=== PATIENT | male | born 1940 | race Native Hawaiian/Other Pacific Islander ===

== ENCOUNTER 2016-07-06 14:07 | Observation (INO) | payer OTHER ==
[~2016-07-06] VITALS: Ht 190.5 cm; Wt 86.3 kg
[2016-07-06 14:00] VITALS: BP 133/82; TEMP 98.4
[2016-07-06 14:59] LABS: POTASSIUM 3.9 mmol/L (3.6-5.2); SODIUM 135 mmol/L (136-145)
[2016-07-06 15:23] LABS: PARTIAL THROMBOPLASTIN TIME 25.9 SECONDS (24.5-33.6)
[2016-07-06] MEDS ORDERED: LOSA50TA PO (16:54)
[2016-07-06] MEDS ORDERED: LIPITOR80 MG PO (16:55)
[2016-07-06] MEDS ORDERED: CARV12.5 PO (16:56)
[2016-07-06] MEDS ORDERED: ISOS30TA17 PO (16:56)
[2016-07-06] MEDS ORDERED: CLOP75TA2 PO (16:57)
[2016-07-06] MEDS ORDERED: ENTERIC COATED325 MG PO (16:57)
[2016-07-06] MEDS ORDERED: [UNRECOGNIZED DRUG - OTHER] OR (16:58)
[2016-07-06] MEDS ORDERED: STOOL SOFTNR100 MG OR (16:58)
[2016-07-06] MEDS ORDERED: SUPER B COM1 OR (16:59)
[2016-07-06] MEDS ORDERED: FERROUS SULF325 MG PO (16:59)
[2016-07-06] MEDS ORDERED: VITAMIN B-121000 MCG PO (16:59)
[2016-07-06] MEDS ORDERED: VITAMIN B6200 MG PO (17:00)
[2016-07-06 19:19] VITALS: BP 116/78; TEMP 98.6; Ht 190.5 cm; Wt 86.3 kg
[2016-07-06 20:00] VITALS: BP 109/64; TEMP 97.9
[2016-07-07 00:16] VITALS: BP 98/55; TEMP 98.2
[2016-07-07 05:48] VITALS: BP 125/74; TEMP 98
[2016-07-07 07:39] LABS: PLATELET COUNT 132 K/uL (142-355)
[2016-07-07 08:00] VITALS: BP 132/84; TEMP 97.8
[2016-07-07 08:09] LABS: POTASSIUM 3.9 mmol/L (3.6-5.2); SODIUM 135 mmol/L (136-145)
[2016-07-07 12:00] VITALS: BP 137/74; TEMP 98.5
== END 2016-07-07 13:04 | disposition home or self-care (01) ==
LOC: ED 14:07 → MED/SURG 17:27
PROVIDERS: Emergency Medicine; ADMIT Specialist
DX: R07.89 Other chest pain (principal); R06.02 Shortness of breath; I25.2 Old myocardial infarction; Z86.73 Personal history of transient ischemic attack (TIA), and cerebral infarction without residual deficits
CPT/HCPCS: 80053; 82550; 82553; 83735; 84100; 84484; 85027; 85379; 85610; 85730; 93005; 96360; 96361; 96372; 99220; 99284; G0378; J1650; J2270

== ENCOUNTER 2016-08-13 10:14 | Observation (INO) | payer OTHER ==
[~2016-08-13] VITALS: Ht 190.5 cm; Wt 89.1 kg
[2016-08-13] VITALS (7 sets, daily range): BP systolic 138–146; BP diastolic 88–103; TEMP 98–98.7; Ht 190.5 cm; Wt 89.1 kg
[~2016-08-13 10:14] MED LIST: CARV12.5 PO; CLOP75TA2 PO; ENTERIC COATED325 MG PO; FERROUS SULF325 MG PO; ISOS30TA17 PO; LIPITOR80 MG PO; LOSA50TA PO; STOOL SOFTNR100 MG OR; SUPER B COM1 OR; VITAMIN B-121000 MCG PO; VITAMIN B6200 MG PO; [UNRECOGNIZED DRUG - OTHER] OR
[2016-08-13 11:39] LABS: PLATELET COUNT 146 K/uL (142-355)
[2016-08-13 12:15] LABS: POTASSIUM 4.2 mmol/L (3.6-5.2); SODIUM 137 mmol/L (136-145)
[2016-08-13 12:17] LABS: PARTIAL THROMBOPLASTIN TIME 25.2 SECONDS (24.5-33.6)
[2016-08-14 04:00] VITALS: BP 139/98; TEMP 97.7
[2016-08-14 04:20] LABS: PLATELET COUNT 151 K/uL (142-355)
[2016-08-14 04:44] LABS: POTASSIUM 4.6 mmol/L (3.6-5.2); SODIUM 136 mmol/L (136-145)
[2016-08-14 08:00] VITALS: BP 142/96; TEMP 98
== END 2016-08-14 13:00 | disposition home or self-care (01) ==
LOC: ED 10:14 → MED/SURG 14:05
PROVIDERS: Specialist; ADMIT Internal Medicine
DX: R07.89 Other chest pain (principal); R06.02 Shortness of breath; I25.2 Old myocardial infarction; I10 Essential (primary) hypertension
CPT/HCPCS: 36415; 80048; 80053; 82550; 84484; 85027; 85610; 85730; 93005; 99220; 99284; G0378

== ENCOUNTER 2018-09-12 13:39 | Emergency (ER) | payer OTHER ==
[~2018-09-12] VITALS: Ht 185.4 cm; Wt 74.8 kg
[2018-09-12 14:04] LABS: PLATELET COUNT 148 K/uL (142-355)
[2018-09-12 14:11] LABS: POTASSIUM 4.1 mmol/L (3.6-5.2); SODIUM 134 mmol/L (136-145)
[2018-09-12] MEDS ORDERED: LIPITOR40 MG PO (14:36)
[2018-09-12] MEDS ORDERED: NITR0.4S2 SL (14:40)
[2018-09-12] MEDS ORDERED: PROAIR HFA INH (14:44)
[2018-09-12] MEDS ORDERED: NEURONTIN 100M100 MG PO (14:46)
[2018-09-12] MEDS ORDERED: TOPIRAMATE50 MG PO (14:48)
[2018-09-12] MEDS ORDERED: TOPIRAMATE25 MG PO (14:50)
[2018-09-12] MEDS ORDERED: ISOS60TA6 PO (14:53)
[2018-09-12] MEDS ORDERED: CARV25TA PO (14:56)
[2018-09-12 17:55] VITALS: BP 145/92; TEMP 98.1
== END 2018-09-12 17:55 | disposition home or self-care (01) ==
LOC: ED 13:39
PROVIDERS: Emergency Medicine
DX: R07.89 Other chest pain (principal)
CPT/HCPCS: 36415; 80053; 82550; 82553; 84484; 85027; 93005; 99284; J2270

== ENCOUNTER 2018-11-06 08:06 | Observation (INO) | payer OTHER ==
[~2018-11-06] VITALS: Ht 188 cm; Wt 84.8 kg
[2018-11-06] VITALS (8 sets, daily range): BP systolic 94–149; BP diastolic 67–94; TEMP 97.4–97.5; Ht 188 cm; Wt 84.8 kg
[~2018-11-06 08:06] MED LIST changes: +CARV25TA PO; +ISOS60TA6 PO; +LIPITOR40 MG PO; +NEURONTIN 100M100 MG PO; +NITR0.4S2 SL; +PROAIR HFA INH; +TOPIRAMATE25 MG PO; +TOPIRAMATE50 MG PO
[2018-11-06 08:36] LABS: PLATELET COUNT 125 K/uL (142-355)
[2018-11-06 08:48] LABS: SODIUM 130 mmol/L (136-145)
[2018-11-06 09:03] LABS: PARTIAL THROMBOPLASTIN TIME 27.6 SECONDS (24.5-33.6)
[2018-11-07 00:03] VITALS: BP 103/71; TEMP 97.5
[2018-11-07 04:00] VITALS: BP 103/70; TEMP 97.4
[2018-11-07 04:49] LABS: PLATELET COUNT 112 K/uL (142-355)
[2018-11-07 06:03] LABS: POTASSIUM 4.3 mmol/L (3.6-5.2)
[2018-11-07 08:14] VITALS: BP 138/86; TEMP 97.6
== END 2018-11-07 11:43 | disposition home or self-care (01) ==
LOC: ED 08:06 → MED/SURG 10:15
PROVIDERS: Family Medicine; ADMIT Student in an Organized Health Care Education/Training Program
DX: R07.89 Other chest pain (principal); E87.1 Hypo-osmolality and hyponatremia; I73.89 Other specified peripheral vascular diseases; R53.1 Weakness; Z86.73 Personal history of transient ischemic attack (TIA), and cerebral infarction without residual deficits; G40.802 Other epilepsy, not intractable, without status epilepticus; I25.2 Old myocardial infarction; E78.00 Pure hypercholesterolemia, unspecified; I25.10 Atherosclerotic heart disease of native coronary artery without angina pectoris; Z95.0 Presence of cardiac pacemaker; D64.89 Other specified anemias; J44.9 Chronic obstructive pulmonary disease, unspecified; R13.0 Aphagia; Z91.14 Patient's other noncompliance with medication regimen
CPT/HCPCS: 36415; 80053; 80061; 80307; 80320; 82140; 82550; 83880; 84443; 84484; 85027; 85610; 85730; 93005; 96365; 96366; 99220; 99284; G0378

== ENCOUNTER 2019-01-09 12:08 | Emergency (ER) | payer OTHER ==
[~2019-01-09] VITALS: Ht 188 cm; Wt 70.3 kg
[2019-01-09 12:20] VITALS: TEMP 98
[2019-01-09 12:43] LABS: PLATELET COUNT 150 K/uL (142-355)
[2019-01-09 12:58] LABS: PARTIAL THROMBOPLASTIN TIME 27.4 SECONDS (24.5-33.6)
[2019-01-09 16:42] VITALS: BP 132/89
== END 2019-01-09 16:42 | disposition short-term general hospital (02) ==
LOC: ED 12:08
PROVIDERS: Emergency Medicine
DX: G45.9 Transient cerebral ischemic attack, unspecified (principal); I63.9 Cerebral infarction, unspecified; R47.81 Slurred speech; Z86.73 Personal history of transient ischemic attack (TIA), and cerebral infarction without residual deficits; Z79.899 Other long term (current) drug therapy
CPT/HCPCS: 36415; 80053; 80307; 81000; 82550; 84484; 85027; 85610; 85730; 93005; 99284

== ENCOUNTER 2019-05-15 12:41 | Emergency (ER) | payer OTHER ==
[~2019-05-15] VITALS: Ht 188 cm; Wt 70.3 kg
[2019-05-15 12:50] VITALS: TEMP 98.1
[2019-05-15 13:51] LABS: PLATELET COUNT 160 K/uL (142-355)
[2019-05-15 14:07] LABS: PARTIAL THROMBOPLASTIN TIME 21.3 SECONDS (24.5-33.6)
[2019-05-15 17:30] VITALS: BP 141/94
== END 2019-05-15 17:35 | disposition home or self-care (01) ==
LOC: ED 12:41
PROVIDERS: Emergency Medicine
DX: I95.89 Other hypotension (principal); E86.0 Dehydration; I69.328 Other speech and language deficits following cerebral infarction; I69.359 Hemiplegia and hemiparesis following cerebral infarction affecting unspecified side; H53.143 Visual discomfort, bilateral; Z79.82 Long term (current) use of aspirin; Z79.02 Long term (current) use of antithrombotics/antiplatelets; Z51.81 Encounter for therapeutic drug level monitoring; R53.1 Weakness; F17.210 Nicotine dependence, cigarettes, uncomplicated
CPT/HCPCS: 80053; 80307; 81000; 83036; 84484; 85027; 85610; 85730; 93005; 96360; 96365; 99284

== ENCOUNTER 2019-06-14 14:19 | Emergency (ER) | payer OTHER ==
[~2019-06-14] VITALS: Ht 182.9 cm; Wt 83.5 kg
[2019-06-14 16:41] LABS: PLATELET COUNT 135 K/uL (142-355)
[2019-06-14 16:46] LABS: SODIUM 136 mmol/L (136-145)
[2019-06-14 18:54] VITALS: BP 136/98; TEMP 98.2
== END 2019-06-14 18:54 | disposition home or self-care (01) ==
LOC: ED 14:19
PROVIDERS: Emergency Medicine
DX: D64.89 Other specified anemias (principal); Z95.0 Presence of cardiac pacemaker; F17.210 Nicotine dependence, cigarettes, uncomplicated
CPT/HCPCS: 80053; 81000; 82550; 83735; 84484; 85027; 87502; 93005; 99283

== ENCOUNTER 2019-06-28 19:28 | Emergency (ER) | payer OTHER ==
[~2019-06-28] VITALS: Ht 182.9 cm; Wt 83.5 kg
[2019-06-28 20:13] LABS: PLATELET COUNT 143 K/uL (142-355)
[2019-06-28 20:20] LABS: POTASSIUM 4.2 mmol/L (3.6-5.2); SODIUM 134 mmol/L (136-145)
[2019-06-28 22:20] VITALS: BP 161/95; TEMP 97.9
== END 2019-06-28 22:20 | disposition home or self-care (01) ==
LOC: ED 19:28
PROVIDERS: Emergency Medicine
DX: R07.89 Other chest pain (principal); W18.39XA Other fall on same level, initial encounter; Y92.89 Other specified places as the place of occurrence of the external cause
CPT/HCPCS: 80053; 81000; 82150; 82550; 83690; 83735; 83880; 84484; 85027; 93005; 96360; 99284

== ENCOUNTER 2019-08-15 17:35 | Observation (INO) | payer OTHER ==
[~2019-08-15] VITALS: Ht 190.5 cm; Wt 79.0 kg
[2019-08-15 11:07] VITALS: BP 157/96; TEMP 98.4
[2019-08-15 17:52] VITALS: BP 169/92; TEMP 98.4
[2019-08-15 18:32] LABS: PLATELET COUNT 139 K/uL (142-355)
[2019-08-15 18:38] LABS: POTASSIUM 3.9 mmol/L (3.6-5.2)
[2019-08-15 19:11] LABS: PARTIAL THROMBOPLASTIN TIME 25.7 SECONDS (24.5-33.6)
[2019-08-15 21:00] VITALS: BP 135/92; TEMP 97.6
[2019-08-16] VITALS: BP 112/76; TEMP 98.6
[2019-08-16 04:00] VITALS: BP 125/74; TEMP 98.1
[2019-08-16 08:19] VITALS: BP 128/89; TEMP 98.2
[2019-08-16 12:06] VITALS: BP 137/86; TEMP 98.3
[2019-08-16 16:04] VITALS: BP 154/103; TEMP 98.1
[2019-08-16 20:00] VITALS: BP 157/96; TEMP 98.4
[2019-08-17] VITALS: BP 154/92; TEMP 97.8
[2019-08-17 04:00] VITALS: BP 137/95; TEMP 98.4
[2019-08-17 06:08] LABS: PLATELET COUNT 120 K/uL (142-355)
[2019-08-17 06:24] LABS: POTASSIUM 4.5 mmol/L (3.6-5.2)
[2019-08-17 08:00] VITALS: BP 146/96; TEMP 98.2
[2019-08-17 12:01] VITALS: BP 108/67; TEMP 98
[2019-08-17 16:00] VITALS: BP 113/80; TEMP 97.9
[2019-08-17 20:00] VITALS: BP 125/89; TEMP 97.9
== END 2019-08-18 00:06 | disposition short-term general hospital (02) ==
LOC: ED 17:35 → MED/SURG 19:39 → UNDODEPER 08-16 20:09 → MED/SURG 08-18 00:06
PROVIDERS: Internal Medicine; ADMIT Hospitalist
DX: I70.92 Chronic total occlusion of artery of the extremities (principal); Z86.73 Personal history of transient ischemic attack (TIA), and cerebral infarction without residual deficits; I25.10 Atherosclerotic heart disease of native coronary artery without angina pectoris; J44.9 Chronic obstructive pulmonary disease, unspecified; I10 Essential (primary) hypertension; Z72.0 Tobacco use; I25.2 Old myocardial infarction; G40.802 Other epilepsy, not intractable, without status epilepticus; N40.0 Benign prostatic hyperplasia without lower urinary tract symptoms; Z79.899 Other long term (current) drug therapy; Z51.81 Encounter for therapeutic drug level monitoring
CPT/HCPCS: 36415; 80048; 80053; 85027; 85379; 85610; 85730; 87040; 93005; 96365; 96372; 96375; 99220; 99284; G0378; J1650; J1885; J2270; J3370; Q9963

== ENCOUNTER 2019-10-05 11:02 | Emergency (ER) | payer OTHER ==
[~2019-10-05] VITALS: Ht 190.5 cm; Wt 78.9 kg
[2019-10-05 11:14] VITALS: TEMP 99.1
[2019-10-05 12:18] LABS: PLATELET COUNT 192 K/uL (142-355)
[2019-10-05 12:31] LABS: PARTIAL THROMBOPLASTIN TIME 27.2 SECONDS (24.5-33.6)
[2019-10-05 14:30] VITALS: BP 142/84
== END 2019-10-05 15:52 | disposition short-term general hospital (02) ==
LOC: ED 11:02
PROVIDERS: Family Medicine
DX: R60.0 Localized edema (principal); R79.89 Other specified abnormal findings of blood chemistry; Z98.890 Other specified postprocedural states; M79.605 Pain in left leg
CPT/HCPCS: 80053; 85027; 85379; 85610; 85730; 99283

== ENCOUNTER 2019-11-22 20:25 | Emergency (ER) | payer OTHER ==
[~2019-11-22] VITALS: Ht 188 cm; Wt 72.6 kg
[2019-11-22 20:25] VITALS: TEMP 98.6
[2019-11-22 21:17] LABS: PLATELET COUNT 139 K/uL (142-355)
[2019-11-22 21:22] LABS: SODIUM 137 mmol/L (136-145)
[2019-11-22 23:24] VITALS: BP 149/101
== END 2019-11-22 23:24 | disposition home or self-care (01) ==
LOC: ED 20:25
PROVIDERS: Emergency Medicine Emergency Medical Services
DX: R07.89 Other chest pain (principal); I25.2 Old myocardial infarction; Z95.0 Presence of cardiac pacemaker; F17.210 Nicotine dependence, cigarettes, uncomplicated
CPT/HCPCS: 36415; 80053; 84484; 85027; 93005; 99284

== ENCOUNTER 2020-03-27 15:51 | Emergency (ER) | payer OTHER ==
[~2020-03-27] VITALS: Ht 190.5 cm; Wt 82.6 kg
[2020-03-27 16:02] VITALS: TEMP 97.6
[2020-03-27 17:03] LABS: PLATELET COUNT 132 K/uL (142-355)
[2020-03-27 17:20] LABS: POTASSIUM 5.2 mmol/L (3.6-5.2)
[2020-03-27 17:22] LABS: PARTIAL THROMBOPLASTIN TIME 26.5 SECONDS (24.5-33.6)
[2020-03-27 18:00] VITALS: BP 161/110
== END 2020-03-27 18:25 | disposition home or self-care (01) ==
LOC: ED 15:51
PROVIDERS: Emergency Medicine Emergency Medical Services
DX: R07.89 Other chest pain (principal); Z20.828 Contact with and (suspected) exposure to other viral communicable diseases
CPT/HCPCS: 36415; 80053; 82550; 84484; 85027; 85610; 85730; 86140; 87502; 87635; 93005; 99284; U0003

== ENCOUNTER 2020-04-03 09:01 | Emergency (ER) | payer OTHER ==
[~2020-04-03] VITALS: Ht 189.2 cm; Wt 85.3 kg
[2020-04-03 09:18] VITALS: TEMP 98.2
[2020-04-03 10:09] LABS: PLATELET COUNT 112 K/uL (142-355)
[2020-04-03 10:17] LABS: POTASSIUM 4.5 mmol/L (3.6-5.2); SODIUM 137 mmol/L (136-145)
[2020-04-03 13:39] VITALS: BP 128/90
== END 2020-04-03 13:47 | disposition home or self-care (01) ==
LOC: ED 09:01
PROVIDERS: Emergency Medicine Emergency Medical Services
DX: R55 Syncope and collapse (principal); I10 Essential (primary) hypertension; R06.02 Shortness of breath; Z20.828 Contact with and (suspected) exposure to other viral communicable diseases
CPT/HCPCS: 80053; 81000; 83880; 84484; 85027; 85610; 87502; 87635; 93005; 96374; 99284; J3490; U0003

== ENCOUNTER 2020-04-13 07:01 | Emergency (ER) | payer OTHER ==
[~2020-04-13] VITALS: Ht 188 cm; Wt 94.3 kg
[2020-04-13 07:04] VITALS: TEMP 98.3
[2020-04-13 07:48] LABS: PLATELET COUNT 110 K/uL (142-355)
[2020-04-13 13:00] VITALS: BP 141/94
== END 2020-04-13 13:06 | disposition home or self-care (01) ==
LOC: ED 07:01
PROVIDERS: Emergency Medicine Emergency Medical Services
DX: R06.09 Other forms of dyspnea (principal); I50.9 Heart failure, unspecified; Z20.828 Contact with and (suspected) exposure to other viral communicable diseases
CPT/HCPCS: 36600; 80053; 82805; 83880; 84484; 85027; 87502; 87635; 93005; 99283; U0003

== ENCOUNTER 2020-06-12 20:51 | Emergency (ER) | payer OTHER ==
[~2020-06-12] VITALS: Ht 188 cm; Wt 99.8 kg
[2020-06-12 22:19] VITALS: BP 130/84; TEMP 98.2
== END 2020-06-12 22:20 | disposition home or self-care (01) ==
LOC: ED 20:51
DX: S00.83XA Contusion of other part of head, initial encounter (principal); W01.198A Fall on same level from slipping, tripping and stumbling with subsequent striking against other object, initial encounter; Y92.098 Other place in other non-institutional residence as the place of occurrence of the external cause
CPT/HCPCS: 99283

== ENCOUNTER 2020-07-06 18:50 | Emergency (ER) | payer OTHER ==
[~2020-07-06] VITALS: Ht 188 cm; Wt 99.8 kg
[2020-07-06 19:19] LABS: PLATELET COUNT 103 K/uL (142-355)
[2020-07-06 19:27] LABS: POTASSIUM 3.8 mmol/L (3.6-5.2)
[2020-07-06 19:37] LABS: PARTIAL THROMBOPLASTIN TIME 25.3 SECONDS (24.5-33.6)
[2020-07-06 22:15] VITALS: BP 152/103; TEMP 98.9
== END 2020-07-06 22:15 | disposition short-term general hospital (02) ==
LOC: ED 18:50
PROVIDERS: Hospitalist
DX: I21.4 Non-ST elevation (NSTEMI) myocardial infarction (principal); I25.10 Atherosclerotic heart disease of native coronary artery without angina pectoris; S76.012A Strain of muscle, fascia and tendon of left hip, initial encounter; Z03.818 Encounter for observation for suspected exposure to other biological agents ruled out; F17.210 Nicotine dependence, cigarettes, uncomplicated; W18.39XA Other fall on same level, initial encounter; Y92.098 Other place in other non-institutional residence as the place of occurrence of the external cause
CPT/HCPCS: 36415; 80053; 80320; 81000; 84484; 85027; 85610; 85730; 87635; 93005; 96360; 96361; 96375; 99284; J0282; J0360; J1170; J2405; U0003

== ENCOUNTER 2020-09-06 15:26 | Emergency (ER) | payer OTHER ==
[~2020-09-06] VITALS: Ht 188 cm; Wt 91.6 kg
[2020-09-06 15:33] VITALS: TEMP 97.3
[2020-09-06 16:03] LABS: PLATELET COUNT 121 K/uL (142-355)
[2020-09-06 16:08] LABS: POTASSIUM 4.3 mmol/L (3.6-5.2); SODIUM 134 mmol/L (136-145)
[2020-09-06 17:30] VITALS: BP 148/99
== END 2020-09-06 17:50 | disposition home or self-care (01) ==
LOC: ED 15:26
PROVIDERS: Family Medicine
DX: K21.9 Gastro-esophageal reflux disease without esophagitis (principal); M79.2 Neuralgia and neuritis, unspecified; M79.672 Pain in left foot
CPT/HCPCS: 80053; 82550; 84484; 85027; 93005; 99284

== ENCOUNTER 2020-09-25 14:18 | Emergency (ER) | payer OTHER ==
[~2020-09-25] VITALS: Ht 188 cm; Wt 81.6 kg
[2020-09-25 14:25] VITALS: TEMP 97.4
[2020-09-25 15:36] LABS: PLATELET COUNT 102 K/uL (142-355)
[2020-09-25 15:45] LABS: POTASSIUM 3.8 mmol/L (3.6-5.2)
[2020-09-25 17:30] VITALS: BP 133/68
[2020-09-25] MEDS ORDERED: FURO20TA67 PO (17:44)
== END 2020-09-25 17:57 | disposition home or self-care (01) ==
LOC: ED 14:18
PROVIDERS: Emergency Medicine
DX: R60.0 Localized edema (principal); R79.89 Other specified abnormal findings of blood chemistry
CPT/HCPCS: 80053; 83735; 83880; 84484; 85027; 93005; 96374; 99284; J1940

== ENCOUNTER 2020-10-16 04:33 | Emergency (ER) | payer OTHER ==
[~2020-10-16 04:33] MED LIST changes: +FURO20TA67 PO
[2020-10-24 11:15] LABS: POTASSIUM 3.7 mmol/L (3.6-5.2)
[2020-10-24 11:22] LABS: PLATELET COUNT 88 K/uL (142-355)
== END 2020-10-16 06:30 | disposition short-term general hospital (02) ==
LOC: ED 04:33
PROVIDERS: Hospitalist
DX: I50.9 Heart failure, unspecified (principal); T82.897A Other specified complication of cardiac prosthetic devices, implants and grafts, initial encounter; Z95.810 Presence of automatic (implantable) cardiac defibrillator; Z11.52 Encounter for screening for COVID-19; X58.XXXA Exposure to other specified factors, initial encounter; Y92.89 Other specified places as the place of occurrence of the external cause
CPT/HCPCS: 36415; 80053; 82550; 82553; 83880; 84484; 85027; 85610; 85730; 87635; 93005; 96374; 96375; 99284; U0003

== ENCOUNTER → 2020-10-18 | Emergency (ER) | payer OTHER | LOC: ED 12:27 | DX: R10.9 Unspecified abdominal pain (principal) | CPT/HCPCS: 99281 ==

== ENCOUNTER 2020-10-23 16:53 | Emergency (ER) | payer OTHER ==
[~2020-10-23] VITALS: Ht 188 cm; Wt 81.6 kg
[2020-10-23 17:56] LABS: PLATELET COUNT 171 K/uL (142-355)
[2020-10-23 18:03] LABS: POTASSIUM 3.7 mmol/L (3.6-5.2)
[2020-10-23 19:40] VITALS: BP 156/94; TEMP 97.8
== END 2020-10-23 19:40 | disposition home or self-care (01) ==
LOC: ED 16:53
PROVIDERS: Emergency Medicine
DX: R53.81 Other malaise (principal); R53.1 Weakness; R79.89 Other specified abnormal findings of blood chemistry
CPT/HCPCS: 36415; 80053; 82550; 83880; 84484; 85027; 93005; 96374; 99284; J1940

== ENCOUNTER 2020-10-24 13:49 | Emergency (ER) | payer OTHER ==
[~2020-10-24] VITALS: Ht 188 cm; Wt 81.6 kg
[2020-10-24 13:50] VITALS: BP 116/89; TEMP 97.3
== END 2020-10-24 17:39 | disposition home or self-care (01) ==
LOC: ED 13:49
DX: R53.83 Other fatigue (principal)
CPT/HCPCS: 99282

== ENCOUNTER 2020-10-28 23:43 | Inpatient (IN) | payer OTHER ==
[~2020-10-28] VITALS: Ht 190.5 cm; Wt 77.3 kg
[2020-10-28 23:46] VITALS: BP 151/102; TEMP 97.9
[2020-10-29] VITALS (12 sets, daily range): BP systolic 124–161; BP diastolic 86–113; TEMP 97.6–97.9; Ht 190.5 cm; Wt 77.3 kg
[2020-10-29 01:04] LABS: PLATELET COUNT 146 K/uL (142-355)
[2020-10-29 01:12] LABS: POTASSIUM 3.7 mmol/L (3.6-5.2)
[2020-10-29 01:23] LABS: PARTIAL THROMBOPLASTIN TIME 25.8 SECONDS (24.5-33.6)
[2020-10-29] MEDS ORDERED: LISI5TAB10 PO (11:22)
[2020-10-29] MEDS ORDERED: CARV6.25 PO (11:22)
[2020-10-29] MEDS ORDERED: ASPIRIN LOW81 MG PO (11:23)
[2020-10-30] VITALS: BP 135/91; TEMP 98.2
[2020-10-30 04:00] VITALS: BP 121/89; TEMP 97.5
[2020-10-30 05:40] LABS: PLATELET COUNT 134 K/uL (142-355)
[2020-10-30 05:53] LABS: POTASSIUM 3.4 mmol/L (3.6-5.2)
[2020-10-30 08:00] VITALS: BP 129/100; TEMP 98.1
[2020-10-30 12:00] VITALS: BP 115/80; TEMP 97.9
[2020-10-30 16:00] VITALS: BP 119/84; TEMP 98
[2020-10-30 20:00] VITALS: BP 91/64; TEMP 98.1
[2020-10-31] VITALS: BP 102/77; TEMP 97.5
[2020-10-31 04:00] VITALS: BP 120/79; BP 129/66; TEMP 97.7
[2020-10-31 08:00] VITALS: BP 128/91; TEMP 97.5
[2020-10-31 12:00] VITALS: BP 111/78; TEMP 98.1
[2020-10-31 16:00] VITALS: BP 120/84; TEMP 98.1
[2020-10-31 20:00] VITALS: BP 122/96; TEMP 97.7
[2020-11-01] VITALS: BP 127/83; TEMP 97.6
[2020-11-01 04:00] VITALS: BP 120/93; TEMP 98
[2020-11-01 08:00] VITALS: BP 141/93; TEMP 98.1
[2020-11-01 08:21] LABS: PLATELET COUNT 112 K/uL (142-355)
[2020-11-01 08:22] LABS: POTASSIUM 3.9 mmol/L (3.6-5.2)
[2020-11-01 12:00] VITALS: BP 111/80; TEMP 98
[2020-11-01 16:00] VITALS: BP 127/95; TEMP 98.1
[2020-11-01 20:00] VITALS: BP 133/91; TEMP 98
[2020-11-02] VITALS: BP 153/98; TEMP 97.7
[2020-11-02 04:00] VITALS: BP 109/92; TEMP 97.4
[2020-11-02 08:00] VITALS: BP 126/95; TEMP 97.5
[2020-11-02 12:00] VITALS: BP 111/90; TEMP 97.5
[2020-11-02 16:00] VITALS: BP 128/88; TEMP 97.3
[2020-11-02 20:09] VITALS: BP 109/81; TEMP 97.7
[2020-11-03 00:12] VITALS: BP 129/92; TEMP 98.1
[2020-11-03 04:00] VITALS: BP 126/88; TEMP 98
[2020-11-03 08:00] VITALS: BP 115/79; TEMP 97.7
[2020-11-03] MEDS ORDERED: KLOR-CON SPRIN10 MEQ PO (10:19)
[2020-11-03] MEDS ORDERED: FURO20TA67 PO (10:19)
== END 2020-11-03 11:05 | disposition home health service (06) | DRG 190 ==
LOC: ED 23:43 → MED/SURG 10-29 03:13
PROVIDERS: Internal Medicine Endocrinology, Diabetes & Metabolism; ADMIT Family Medicine; ATTEND Internal Medicine
DX: J44.0 Chronic obstructive pulmonary disease with (acute) lower respiratory infection (principal); J18.8 Other pneumonia, unspecified organism; J44.1 Chronic obstructive pulmonary disease with (acute) exacerbation; I11.0 Hypertensive heart disease with heart failure; I50.9 Heart failure, unspecified; R06.09 Other forms of dyspnea; I25.10 Atherosclerotic heart disease of native coronary artery without angina pectoris; Z86.73 Personal history of transient ischemic attack (TIA), and cerebral infarction without residual deficits; I25.2 Old myocardial infarction; R53.1 Weakness; R62.7 Adult failure to thrive; N40.0 Benign prostatic hyperplasia without lower urinary tract symptoms; E87.6 Hypokalemia; R26.89 Other abnormalities of gait and mobility; Z95.0 Presence of cardiac pacemaker; Z72.0 Tobacco use
CPT/HCPCS: 36415; 80048; 80053; 81000; 82550; 83880; 84484; 85027; 85610; 85730; 87635; 93005; 94640; 94664; 94760; 96360; 96365; 96367; 96374; 96375; 99284; J0456; J0696; J1940; U0003

== ENCOUNTER 2020-11-11 03:38 | Emergency (ER) | payer OTHER ==
[~2020-11-11] VITALS: Ht 190.5 cm; Wt 64.9 kg
[~2020-11-11 03:38] MED LIST changes: +ASPIRIN LOW81 MG PO; +CARV6.25 PO; +KLOR-CON SPRIN10 MEQ PO; +LISI5TAB10 PO
[2020-11-11 05:08] LABS: PLATELET COUNT 105 K/uL (142-355)
[2020-11-11 05:17] LABS: POTASSIUM 4.2 mmol/L (3.6-5.2)
[2020-11-11 07:45] VITALS: BP 136/82; TEMP 97.7
== END 2020-11-11 07:45 | disposition home or self-care (01) ==
LOC: ED 03:38
PROVIDERS: Family Medicine
DX: I50.9 Heart failure, unspecified (principal); J06.9 Acute upper respiratory infection, unspecified; I10 Essential (primary) hypertension
CPT/HCPCS: 36415; 80053; 83880; 84484; 85027; 93005; 96374; 99284; J1940

== ENCOUNTER 2020-11-15 06:47 | Emergency (ER) | payer OTHER ==
[~2020-11-15] VITALS: Ht 190.5 cm; Wt 64.9 kg
[2020-11-15 06:55] VITALS: TEMP 96.9
[2020-11-15 08:46] LABS: PLATELET COUNT 96 K/uL (142-355)
[2020-11-15 08:54] LABS: POTASSIUM 3.9 mmol/L (3.6-5.2)
[2020-11-15 10:00] VITALS: BP 136/95
== END 2020-11-15 10:08 | disposition home or self-care (01) ==
LOC: ED 06:47
PROVIDERS: Family Medicine
DX: J44.1 Chronic obstructive pulmonary disease with (acute) exacerbation (principal); I50.9 Heart failure, unspecified
CPT/HCPCS: 80053; 82550; 82553; 84484; 85027; 93005; 94664; 96374; 96375; 99284; J2405; J2930

== ENCOUNTER 2020-11-17 02:41 | Emergency (ER) | payer OTHER ==
[~2020-11-17] VITALS: Ht 190.5 cm; Wt 64.9 kg
[2020-11-17 03:34] LABS: PLATELET COUNT 109 K/uL (142-355)
[2020-11-17 03:41] LABS: POTASSIUM 3.6 mmol/L (3.6-5.2)
[2020-11-17 05:03] VITALS: BP 144/92; TEMP 98.5
== END 2020-11-17 05:03 | disposition home or self-care (01) ==
LOC: ED 02:41
PROVIDERS: Emergency Medicine
DX: I50.9 Heart failure, unspecified (principal); Z91.14 Patient's other noncompliance with medication regimen
CPT/HCPCS: 36415; 80048; 83880; 84484; 85027; 93005; 96374; 99284; J1940

== ENCOUNTER 2020-11-20 22:12 | Emergency (ER) | payer OTHER ==
[~2020-11-20] VITALS: Ht 190.5 cm; Wt 80.7 kg
[2020-11-20 22:18] VITALS: TEMP 98
[2020-11-20 22:50] LABS: PLATELET COUNT 118 K/uL (142-355)
[2020-11-20 23:06] LABS: POTASSIUM 3.6 mmol/L (3.6-5.2)
[2020-11-20 23:46] VITALS: BP 137/92
== END 2020-11-21 | disposition home or self-care (01) ==
LOC: ED 22:12
PROVIDERS: Emergency Medicine
DX: I50.9 Heart failure, unspecified (principal); R77.8 Other specified abnormalities of plasma proteins
CPT/HCPCS: 36415; 80048; 83880; 84484; 85027; 93005; 96374; 99284; J1940